=== PATIENT | male | born 2000 | race Caucasian/White ===

== ENCOUNTER 2021-04-16 23:17 | Emergency (ER) | payer OTHER ==
[~2021-04-16] VITALS: Ht 177.8 cm; Wt 79.5 kg
[2021-04-17 00:50] VITALS: BP 114/72
== END 2021-04-17 02:19 | disposition home or self-care (01) ==
LOC: ER 23:18
DX: E16.2 Hypoglycemia, unspecified (principal); R20.0 Anesthesia of skin; R42 Dizziness and giddiness; R51.9 Headache, unspecified; E86.0 Dehydration
CPT/HCPCS: 70450; 82948; 93005; 99284